=== PATIENT | female | born 1990 | race Caucasian/White ===

== ENCOUNTER 2019-01-08 22:32 | Emergency (ER) | payer OTHER ==
[~2019-01-08] VITALS: Ht 165.1 cm; Wt 59.1 kg
[2019-01-09] MEDS ORDERED: PYRI1TAB5 PO (00:23)
[2019-01-09] MEDS ORDERED: KEFL500C17 PO (00:23)
[2019-01-09] MEDS ORDERED: PHENAZOPYRIDINE 100 MG TAB PO ONE (00:30)
[2019-01-09] MEDS ORDERED: CEPHALEXIN 500 MG CAP PO ONE (00:30)
[2019-01-09 01:01] VITALS: BP 128/67
== END 2019-01-09 01:09 | disposition home or self-care (01) ==
LOC: M ED 22:32
DX: N30.01 Acute cystitis with hematuria (principal)

== ENCOUNTER 2021-04-20 18:36 | Emergency (ER) | payer OTHER ==
[~2021-04-20] VITALS: Ht 165.1 cm; Wt 67.2 kg
[~2021-04-20 18:36] MED LIST: KEFL500C17 PO; PYRI1TAB5 PO
--- OUTSIDE RECORDS SUMMARY | 2021-04-20 18:42 | CCD | Continuity of Care Document ---
Author Author Raegan SANCHEZ [facility] Organization Unknown Address [facility] [address] [place] [address] Phone [phone] Problems Active Problems Provider Date Family problems Arnold Sanchez LCSW [place]: 02/18/2021 Adjustment disorder with anxious mood Arnold Sanchez LCSW [place]: 02/18/2021 Social History Type Date Description Comments Sex Unknown Allergies, Adverse Reactions, Alerts Description No Information Available Medications Description No Information Available Immunizations Description No Information Available Vital Signs Description No Information Available Results Description No Information Available Procedures Date Code Description Status 02/09/2021 15019 Psychiatric Diagnostic Evaluatio n Completed Medical Devices Description No Information Available Encounters Description No Information Available Assessments Date Code Description Provider 02/18/2021 F43.22 Adjustment disorder with anxiety Arnold Sanchez LCSW 02/18/2021 Z63.0 Problems in relationship with sp ouse or partner Arnold Sanchez LCSW 02/09/2021 F43.20 Adjustment disorder, unspecified Arnold Sanchez LCSW 02/09/2021 Z63.0 Problems in relationship with sp ouse or partner Arnold Sanchez LCSW Plan of Treatment Future Appointment(s):* 03/07/2021 9:00 am - Arnold Sanchez LCSW at [facility] * 03/08/2021 1:00 pm - Petrona Allen RN at [facility] Functional Status Description No Information Available Mental Status Description No Information Available Referrals Description No Information Available
--- OUTSIDE RECORDS SUMMARY | 2021-04-20 18:42 | CCD | Continuity of Care Document ---
Author Author Raegan SANCHEZ [facility] Organization Unknown Address [facility] [address] [place] [address] Phone [phone] Problems Description No Information Available Social History Type Date Description Comments Sex Unknown Allergies, Adverse Reactions, Alerts Description No Information Available Medications Description No Information Available Immunizations Description No Information Available Vital Signs Description No Information Available Results Description No Information Available Procedures Date Code Description Status 02/09/2021 55053 Psychiatric Diagnostic Evaluatio n Completed Medical Devices Description No Information Available Encounters Description No Information Available Assessments Date Code Description Provider 02/09/2021 F43.20 Adjustment disorder, unspecified Arnold Sanchez LCSW 02/09/2021 Z63.0 Problems in relationship with sp ouse or partner Arnold Sanchez LCSW Plan of Treatment Future Appointment(s):* 03/04/2021 11:00 am - Arnold Sanchez LCSW at [facility] * 02/25/2021 1:00 pm - Arnold Sanchez LCSW at [facility] Functional Status Description No Information Available Mental Status Description No Information Available Referrals Description No Information Available
--- OUTSIDE RECORDS SUMMARY | 2021-04-20 18:42 | CCD | Continuity of Care Document ---
Author Author Raegan ORTA PA-C Organization Unknown Address [facility] [address] [place] [address] Phone [phone] Care Team Providers Care Award Clerk Name Role Phone [facility] AUTM [phone] Problems Active Problems Provider Date Family problems Arnold Wade LCSW [place]: 02/18/2021 Adjustment disorder with anxious mood Arnold Wade LCSW [place]: 02/18/2021 Social History Type Date Description Comments Sex Unknown Allergies, Adverse Reactions, Alerts Active Allergies Criticality Reaction | Severity Comments Date NKDA Unable to assess criticality 03/08/2021 Seasonal Unable to assess criticality 03/08/2021 NKFA Unable to assess criticality 03/08/2021 Medications Description No Active Medications Immunizations Description No Information Available Vital Signs Date Vital Result Comment 03/08/2021 1:02pm BP Systolic Sitting 111 mmHg BP Diastolic Sitting 69 mmHg Heart Rate 96 /min Body Temperature 98.4 F Oral Respiratory Rate 16 /min O2 % BldC Oximetry 98 % Weight 141.50 lb Weight 64.184 kg Height 65.5 inches 5'5.50" BMI (Body Mass Index) 23.2 kg/m2 BSA (Body Surface Area) 1.72 m2 Results Description No Information Available Procedures Date Code Description Status 03/18/2021 79041 Psychiatric Diag Eval W/Medical Service Completed 03/08/2021 17053 Preventive Counseling Indiv 30 M in Completed 02/09/2021 60805 Psychiatric Diagnostic Evaluatio n Completed Medical Devices Description No Information Available Encounters Description No Information Available Assessments Date Code Description Provider 03/18/2021 F43.22 Adjustment disorder with anxiety Slava Orta PA-C 03/18/2021 Z63.0 Problems in relationship with sp ouse or partner Slava Orta PA-C 03/08/2021 F43.22 Adjustment disorder with anxiety Petrona Allen RN 03/08/2021 Z63.0 Problems in relationship with sp ouse or partner Petrona Allen RN 03/07/2021 F43.22 Adjustment disorder with anxiety Arnlod Sheri, [facility] 03/07/2021 Z63.0 Problems in relationship with sp ouse or partner Arnold Sheri, [facility] 02/25/2021 F43.22 Adjustment disorder with anxiety Arnold [place], [facility] 02/25/2021 Z63.0 Problems in relationship with sp ouse or partner Arnold [place], [facility] 02/18/2021 F43.22 Adjustment disorder with anxiety Arnold Sheri, [facility] 02/18/2021 Z63.0 Problems in relationship with sp ouse or partner Arnold [place], [facility] 02/09/2021 F43.20 Adjustment disorder, unspecified Arnold Sheri, [facility] 02/09/2021 Z63.0 Problems in relationship with sp ouse or partner Arnold Sheri, [employer]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
--- OUTSIDE RECORDS SUMMARY | 2021-04-20 18:42 | CCD | Continuity of Care Document ---
Author Author Raegan ORTA PA-C Organization Unknown Address [facility] [address] [place] [address] Phone [phone] Care Team Providers Care Meat Smoker Name Role Phone [facility] AUTM [phone] Problems Active Problems Provider Date Family problems [...] Available Procedures Date Code Description Status 03/18/2021 22848 Psychiatric Diag Eval W/Medical Service Completed 03/08/2021 35152 Preventive Counseling Indiv 30 M in Completed 02/09/2021 91157 Psychiatric Diagnostic Evaluatio n Completed Medical Devices [...] RN 03/07/2021 F43.22 Adjustment disorder with anxiety Arnold Sheri, [facility] 03/07/2021 Z63.0 Problems in relationship with sp ouse or partner Arnold Sheri, [facility] 02/25/2021 F43.22 Adjustment disorder with anxiety Arnold [place], [facility] 02/25/2021 Z63.0 Problems in relationship with sp ouse or partner Arnold [place], [facility] 02/18/2021 F43.22 Adjustment disorder with anxiety Arnold Sheri, [facility] 02/18/2021 Z63.0 Problems in relationship with sp ouse or partner Arnold [place], [facility] 02/09/2021 F43.20 Adjustment disorder, unspecified Arnold Sheri, [facility] 02/09/2021 Z63.0 Problems in relationship with sp ouse or partner 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 Functional Status Description No Information Available Mental Status Description No Information Available Referrals Description No Information Available
--- OUTSIDE RECORDS SUMMARY | 2021-04-20 18:42 | CCD | Continuity of Care Document ---
Author Author Raegan SANCHEZ [facility] Organization Unknown Address [facility] [address] [place] [address] Phone [phone] Problems Active Problems Provider Date Family problems [...] Available Procedures Date Code Description Status 02/09/2021 71490 Psychiatric Diagnostic Evaluatio n Completed Medical Devices Description No Information Available Encounters Description No Information Available Assessments Date Code Description Provider 02/25/2021 F43.22 Adjustment disorder with anxiety Arnold Sheri, [facility] 02/25/2021 Z63.0 Problems in relationship with sp ouse or partner Arnold Sheri, [facility] 02/18/2021 F43.22 Adjustment disorder with anxiety Arnold Sehri, [facility] 02/18/2021 Z63.0 Problems in relationship with sp ouse or partner Arnold Bent, [facility] 02/09/2021 F43.20 Adjustment disorder, unspecified Arnold Sheri, [facility] 02/09/2021 Z63.0 Problems in relationship with sp ouse or partner 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
--- OUTSIDE RECORDS SUMMARY | 2021-04-20 18:42 | CCD ---
Author Author [facility] Organization [facility] Address Unknown Phone Unavailable Care Team Providers Care Lathe Setup Operator Name Role Phone MCALLISTER, J ZARA PA Unavailable Unavailable MCALLISTER, J ZARA PA Unavailable Unavailable MCALLISTER, J ZARA PA Unavailable Unavailable MCALLISTER, J ZARA PA Unavailable Unavailable MCALLISTER, J ZARA PA Unavailable Unavailable MCALLISTER, J ZARA PA Unavailable Unavailable MCALLISTER, J ZARA PA Unavailable Unavailable MCALLISTER, J ZARA PA Unavailable Unavailable MCALLISTER, J ZARA PA Unavailable Unavailable MCALLISTER, J ZARA PA Unavailable Unavailable MCALLISTER, J ZARA PA Unavailable Unavailable MCALLISTER, J ZARA PA Unavailable Unavailable MCALLISTER, J ZARA PA Unavailable Unavailable MCALLISTER, J ZARA PA Unavailable Unavailable MCALLISTER, J ZARA PA Unavailable Unavailable MCALLISTER, J ZARA PA Unavailable Unavailable MCALLISTER, J ZARA PA Unavailable Unavailable MCALLISTER, J ZARA PA Unavailable Unavailable MCALLISTER, J ZARA PA Unavailable Unavailable MCALLISTER, J ZARA PA Unavailable Unavailable MCALLISTER, J ZARA PA Unavailable Unavailable MCALLISTER, J ZARA PA Unavailable Unavailable MCALLISTER, J ZARA PA Unavailable Unavailable MCALLISTER, J ZARA PA Unavailable Unavailable MCALLISTER, J ZARA PA Unavailable Unavailable MCALLISTER, J ZARA PA Unavailable Unavailable MCALLISTER, J ZARA PA Unavailable Unavailable Marquez Gavin MD Unavailable Unavailable Marquez Gavin MD Unavailable Unavailable Marquez Gavin MD Unavailable Unavailable Marquez Gavin MD Unavailable Unavailable Marquez Gavin MD Unavailable Unavailable Marquez Gavin MD Unavailable Unavailable Marquez Gavin MD Unavailable Unavailable Marquez Gavin MD Unavailable Unavailable Marquez Gavin MD Unavailable Unavailable Aronowitz, Marquez Esposito MD Unavailable Unavailable Aronowitz, Marquez Esposito MD Unavailable Unavailable Aronowitz, Marquez Esposito MD Unavailable Unavailable Aronowitz, Marquez Esposito MD Unavailable Unavailable Aronowitz, Marquez Esposito MD Unavailable Unavailable Aronowitz, Marquez Esposito MD Unavailable Unavailable Aronowitz, Marquez Esposito MD Unavailable Unavailable Aronowitz, Marquez Esposito MD Unavailable Unavailable Aronowitz, Marquez Esposito MD Unavailable Unavailable Aronowitz, Marquez Esposito MD Unavailable Unavailable Aronowitz, Marquez Esposito MD Unavailable Unavailable Aronowitz, Marquez Esposito MD Unavailable Unavailable Aronowitz, Marquez Esposito MD Unavailable Unavailable Aronowitz, Marquez Esposito MD Unavailable Unavailable Aronowitz, Marquez Esposito MD Unavailable Unavailable Aronowitz, Marquez Esposito MD Unavailable Unavailable Aronowitz, Marquez Esposito MD Unavailable Unavailable DANIEL, JESSICA HEALTH NAVIGATOR Unavailable Unavailable DANIEL, JESSICA HEALTH NAVIGATOR Unavailable Unavailable HICMERI GONZALES Unavailable Unavailable Re-disclosure Warning The records that you are about to access may contain information from federally-assisted alcohol or drug abuse programs. If such information is present, then the following federally mandated warning applies: This information has been disclosed to you from records protected by federal confidentiality rules (42 CFR part 2). The federal rules prohibit you from making any further disclosure of this information unless further disclosure is expressly permitted by the written consent of the person to whom it pertains or as otherwise permitted by 42 CFR part 2. A general authorization for the release of medical or other information is NOT sufficient for this purpose. The Federal rules restrict any use of the information to criminally investigate or prosecute any alcohol or drug abuse patient.The records that you are about to access may contain highly sensitive health information, the redisclosure of which is protected by Article 27-F of the [facility] Public Health law. If you continue you may have access to information: Regarding HIV / AIDS; Provided by facilities licensed or operated by the [facility] Office of Mental Health; or Provided by the [facility] Office for People With Developmental Disabilities. If such information is present, then the following [facility] mandated warning applies: This information has been disclosed to you from confidential records which are protected by state law. State law prohibits you from making any further disclosure of this information without the specific written consent of the person to whom it pertains, or as otherwise permitted by law. Any unauthorized further disclosure in violation of state law may result in a fine or care home sentence or both. A general authorization for the release of medical or other information is NOT sufficient authorization for further disc losure. Encounters Encounter Providers Location Date Indications Data Source(s ) Outpatient Attender: ZARA VALLES 03/18 11:08:00 AM EDT - 03/18/2021 11:08:00 AM [facility] Outpatient Attender: ZARA Castanoerrer: Vaibhav king MD 03/08/2021 12:53:00 PM T 03/08/2021 12:53:00 PM [facility] Outpatient Attender: JESSICA SANCHEZ [facility] 09:10:00 AM T 03/07/2021 09:10:00 AM [facility] Outpatient Attender: [facility] Vaibhav guerrier MD 02/25/2021 12:52:00 PM T 02/25/2021 12:52:00 PM [facility] Outpatient Attender: JESSICA SANCHEZ LMReferrer: Vaibhav guerrier MD 02/18/2021 10:52:00 AM T 02/18/2021 10:52:00 AM [facility] Outpatient Attender: JESSICA SANCHEZ LMSW 11:18:00 AM [facility] 02/09/2021 11:18:00 AM [facility] Outpatient Attender: MERI ONEILL 05/19/2020 11:00:00 AM [facility] Medications No Information Insurance Providers Payer name Policy type / Coverage type Policy ID Covered constitution party ID Covered constitution party's relationship to stoll Policy Stoll Plan Information [facility] [id number] [facility] [id number] [facility] [id number] 01 [id number] [facility] [id number] SPO [id number] Problems, Conditions, and Diagnoses Code Display Name Description Problem Type Effective Dates Data Source(s) Z630 Problems in relationship with spouse or partner Problems in relationship with spouse or partner Diagnosis 03/18/2021 11:08:00 AM EDT [facility] F4322 Adjustment disorder with anxiety Adjustment diso rder with anxiety Diagnosis 03/18/2021 11:08:00 AM EDT [facility] F4320 Adjustment disorder, unspecified Adjustment diso rder, unspecified Diagnosis 02/09/2021 11:18:00 AM EDT [facility] F43.10 Post-traumatic stress disorder, unspecif ied POST-TRAUMATIC STRESS DISORDER, UNSPECIFIED Diagnosis 05/19/2020 11:00:00 AM [facility] F41.9 Anxiety disorder, unspecified ANXIETY DISORDER, UNSPEC IFIED Diagnosis 05/19/2020 11:00:00 AM [facility] F43.22 Adjustment disorder with anxious mood Ad justment disorder with anxious mood Problem 02/18/2021 12:00:00 AM EDT [facility] ([facility]) Z63.0 Family problems Family problems Problem 02/18/2021 12:0 0:00 AM EDT [facility] ([facility]) Surgeries/Procedures Procedure Description Date Indications Data Source(s) Psychiatric Diag Eval W/Medical Service 03/18/2021 12: 00:00 AM EDT [facility] ([facility]) PREVENT MED FLOWER MAKER&/RISK FACTOR REDJ SPX 30 MIN 03/08 12:00:00 AM EDT [facility] ([facility]) Psychiatric Diagnostic Evaluation 02/09/2021 12:00:00 AM EDT [facility] ([facility]) Results ID Date Data Source [id number] 03/08/2021 01:30:00 PM EDT [facility] ([facility]) Name Value Range Interpretation Code Description Data Karyn rce(s) Supporting Document(s) Laboratory test finding (navigational concept) Laboratory test result [facility] ([facility]) {DIAGNOSIS: F43.22~{MEDICATIONS/DECLARE D: NO MEDICATIONS PRESCRIBED~{PRESCRIPTION INFO:~{PRESCR PDF Laboratory test result [facility] ([facility]) {DIAGNOSIS: F43.22~{MEDICATIONS/DECLARE D: NO MEDICATIONS PRESCRIBED~{PRESCRIPTION INFO:~{PRESCR ID Date Data Source [id number] 03/19/2021 06:21:00 AM EDT [facility] Name Value Range Interpretation Code Description Data Karyn rce(s) Supporting Document(s) Drugs identified in Urine FINAL [facility] TOXASSURE SELECT 13 (MW) Test Result Flag Units NO DRUGS DETECTED. Svetlana t Result Flag Units Ref Range Creatinine 32 mg/dL > =20 Declared Medications: The flagging and interpretation on this report are based on the following declared medications. Unexpected results may arise from inaccuracies in the declared medications. No medication use reported. For clinical consultation, please call . Report . [facility] Procedure Social History No Information Vital Signs ID Date Data Source UNK Name Value Range Interpretation Code Description Data Source(s) Respiratory rate 16 /min 16 /min [facility] ( [facility]) Oxygen saturation in Arterial blood by Pulse oximetry 98 % 98 % [facility] ([facility]) Body weight 64.184 kg 64.184 kg [facility] ([facility]) Body temperature 98.4 [degF] 98.4 [degF] [facility] ([facility]) Oral Body weight 141.50 [lb_av] 141.50 [lb_av] [facility] ([facility]) Body height 65.5 [in_i] 65.5 [in_i] [facility] ([facility]) 5'5.50" Body mass index (BMI) [Ratio] 23.2 kg/m2 23.2 k g/m2 [facility] Body surface area Derived from formula 1.72 m2 1.72 m2 [facility] Systolic blood pressure--sitting 111 mm[Hg] 111 mm[Hg] [facility] ([facility]) Diastolic blood pressure--sitting 69 mm[Hg] 69 mm[Hg] [facility] ([facility]) Heart rate 96 /min 96 /min [facility] ([facility])
--- OUTSIDE RECORDS SUMMARY | 2021-04-20 18:42 | CCD | Continuity of Care Document ---
Author Author Raegan ORTA PA-C Organization Unknown Address [facility] [address] [place] [address] Phone [phone] Care Team Providers Care Director Of Special Education Name Role Phone [facility] AUTM [phone] Problems Active Problems Provider Date Family problems [...] Available Procedures Date Code Description Status 03/18/2021 87515 Psychiatric Diag Eval W/Medical Service Completed 03/08/2021 50097 Preventive Counseling Indiv 30 M in Completed 02/09/2021 90223 Psychiatric Diagnostic Evaluatio n Completed Medical Devices [...] F43.22 Adjustment disorder with anxiety Arnold Sheri, [facility] 03/07/2021 Z63.0 Problems in relationship with sp ouse or partner Arnold Sheri, [facility] 02/25/2021 F43.22 Adjustment disorder with anxiety Arnold Otero, [facility] 02/25/2021 Z63.0 Problems in relationship with sp ouse or partner Arnold Otero, [facility] 02/18/2021 F43.22 Adjustment disorder with anxiety Arnold Sheri, [facility] 02/18/2021 Z63.0 Problems in relationship with sp ouse or partner Arnold Otero, [facility] 02/09/2021 F43.20 Adjustment disorder, unspecified Arnold Sheri, [facility] 02/09/2021 Z63.0 Problems in relationship with sp ouse or partner 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
--- OUTSIDE RECORDS SUMMARY | 2021-04-20 18:42 | CCD ---
Continuity of Care Document (CCD) Created on: 03/08/2021 Raegan Crystal External Reference #: [id number] : [id number] Sex: Female Author Author Raegan RICHARDSON RN Organization Unknown Address [address] [place] [address] Phone [phone] Care Team Providers Care Assistant Media Planner Name Role Phone [facility] AUTM [phone] Problems Active Problems Provider Date Family problems Arnold Wade LCSW [place]: 02/18/2021 Adjustment disorder with anxious mood EDMOND WigginsW O nset: 02/18/2021 Social History Type Date [...] Available Procedures Date Code Description Status 02/09/2021 14271 Psychiatric Diagnostic Evaluatio n Completed Medical Devices Description No Information Available Encounters Description No Information Available Assessments Date Code Description Provider 03/07/2021 F43.22 Adjustment disorder with anxiety Arnold Wade, [facility] 03/07/2021 Z63.0 Problems in relationship with sp ouse or partner Arnold Wade [employer] 02/25/2021 F43.22 Adjustment disorder with anxiety Arnold Sheri, [facility] 02/25/2021 Z63.0 Problems in relationship with sp ouse or partner Arnold Sheri, [facility] 02/18/2021 F43.22 Adjustment disorder with anxiety Arnold Harnett, [facility] 02/18/2021 Z63.0 Problems in relationship with sp ouse or partner Arnold Sheri, [facility] 02/09/2021 F43.20 Adjustment disorder, unspecified Arnold Harnett, [facility] 02/09/2021 Z63.0 Problems in relationship with sp ouse or partner Arnold Harnett, [facility] Plan of Treatment Future Appointment(s):* 03/18/2021 11:00 am - Slava Orta PA-C at [facility] Functional Status Description No Information Available Mental Status Description No Information Available Referrals Description No Information Available
--- OUTSIDE RECORDS SUMMARY | 2021-04-20 18:42 | CCD | Continuity of Care Document ---
Author Author Raegan ORTA PAHoma Organization Unknown Address [facility] [address] [place] [address] Phone [phone] Care Team Providers Care Aircraft Structural Design Engineer Name Role Phone [facility] AUTM [phone] Problems Active Problems Provider Date Family problems [...] BSA (Body Surface Area) 1.72 m2 Results Test Acquired Date Facility Test Result H/L Range Note [facility] Toxassure Select 13 03/08/2021 Tony hawley Summary Report (Summary) FINAL 1, 2 PDF . 1 {DIAGNOSIS: F43.22~{MEDICAT IONS/DECLARED: NO MEDICATIONS PRESCRIBED~{PRESCRIPTION INFO:~{PRESCR 2 TOXASSURE SELECT 13 (MW) Test Result Flag Units NO DRUGS DETECTED. Test Result Flag Units Ref Range Creatinine 32 mg/dL >=20 Declared Medications: The flagging and interpretation on this report are based on the following declared medications. Unexpected results may arise from inaccuracies in the declared medications. No medication use reported. For clinical consultation, please call . Procedures Date Code Description Status 03/18/2021 87980 Psychiatric Diag Eval W/Medical Service Completed 03/08/2021 46062 Preventive Counseling Indiv 30 M in Completed 02/09/2021 59331 Psychiatric Diagnostic Evaluatio n Completed Medical Devices Description No Information Available Encounters Description No Information Available Assessments Date Code Description Provider 03/18/2021 F43.22 Adjustment disorder with anxiety Slava Orta PA-C 03/18/2021 Z63.0 Problems in relationship with sp ouse or partner Slava Orta PA-C 03/08/2021 F43.22 Adjustment disorder with anxiety Petrona Allen, RN 03/08/2021 Z63.0 Problems in relationship with sp ouse or partner Petorna Allen RN 03/07/2021 F43.22 Adjustment disorder with anxiety Arnold Sheri, [facility] 03/07/2021 Z63.0 Problems in relationship with sp ouse or partner Arnold Sheri, [facility] 02/25/2021 F43.22 Adjustment disorder with anxiety Arnold Duplin, [facility] 02/25/2021 Z63.0 Problems in relationship with sp ouse or partner Arnold Duplin, [facility] 02/18/2021 F43.22 Adjustment disorder with anxiety Arnold Duplin, [facility] 02/18/2021 Z63.0 Problems in relationship with sp ouse or partner Arnold Duplin, [facility] 02/09/2021 F43.20 Adjustment disorder, unspecified Arnold Duplin, [facility] 02/09/2021 Z63.0 Problems in relationship with sp ouse or partner 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
[2021-04-20 22:20] LABS: BASO # 0.1 10^3/uL (0.0-0.2); BASO % 0.7 % (0.0-1.0); EOS # 0.2 10^3/uL (0.0-0.5); EOS % 2.2 % (0.0-3.0); HEMATOCRIT 39.8 % (36.0-47.0); LYMPH # 2.5 10^3/uL (1.5-5.0); LYMPH % 35.1 % (24.0-44.0); MEAN CORPUSCULAR HEMOGLOBIN 28.9 pg (27.0-33.0); MEAN CORPUSCULAR HGB CONC 32.7 g/dl (32.0-36.5); MEAN CORPUSCULAR VOLUME 88.4 fl (80.0-96.0); MONO # 0.7 10^3/uL (0.0-0.8); MONO % 9.5 % (2.0-8.0); NEUTROPHILS # 3.8 10^3/uL (1.5-8.5); NEUTROPHILS % 52.4 % (36.0-66.0); PLATELET COUNT, AUTOMATED 232 10^3/uL (150-450); WHITE BLOOD COUNT 7.2 10^3/uL (4.0-10.0)
[2021-04-20 22:52] LABS: ALBUMIN 3.8 GM/DL (3.2-5.2); ALT/SGPT 22 U/L (12-78); BILIRUBIN,DIRECT < 0.1 MG/DL (0.0-0.2); BILIRUBIN,TOTAL 0.3 MG/DL (0.2-1.0); BLOOD UREA NITROGEN 14 MG/DL (7-18); CALCIUM LEVEL 9.2 MG/DL (8.5-10.1); CARBON DIOXIDE LEVEL 28 MEQ/L (21-32); CHLORIDE LEVEL 103 MEQ/L (98-107); CREATININE FOR GFR 0.83 MG/DL (0.55-1.30); GLOMERULAR FILTRATION RATE > 60.0 (>60); GLUCOSE, FASTING 94 MG/DL (70-100); LIPASE 166 U/L (73-393); POTASSIUM SERUM 3.9 MEQ/L (3.5-5.1); SODIUM LEVEL 139 MEQ/L (136-145); TOTAL PROTEIN 7.2 GM/DL (6.4-8.2)
[2021-04-20 23:00] LABS: HCG, SERUM QUALITATIVE NEGATIVE (NEGATIVE)
[2021-04-21 00:45] VITALS: BP 138/72
--- OUTSIDE RECORDS SUMMARY | 2021-04-21 01:57 | CCD ---
Author Author [facility] Organization [facility] Address Unknown Phone Unavailable Care Team Providers Care Supervisor [employer]estock [employer] Name Role Phone MCALLISTER, J ZARA PA [...] Unavailable Marquez Gavin MD Unavailable Unavailable Marquez Gaivn MD Unavailable Unavailable Marquez Gavin MD Unavailable [...] Marquez Esposito MD Unavailable Unavailable DANIEL, JESSICA CONTRACT MODELER Unavailable Unavailable DANIEL, JESSICA CONTRACT MODELER Unavailable Unavailable HICMERI GONZALES Unavailable Unavailable Re-disclosure [...] is protected by Article 27-F of the [facility] Public Health law. If you continue you may have access to information: Regarding HIV / AIDS; Provided by facilities licensed or operated by the [facility] Office of Mental Health; or Provided by the [facility] Office for People With Developmental Disabilities. If such information is present, then the following [facility] mandated warning applies: This information has been [...] law may result in a fine or alf sentence or both. A general authorization for the release of medical or other information is NOT sufficient authorization for further disc losure. Encounters Encounter Providers Location Date Indications Data Source(s ) Outpatient Attender: ZARA VALLES 03/18 11:08:00 AM EDT - 03/18/2021 11:08:00 AM [facility] Outpatient Attender: ZARA MUNGUIAeferrer: Vaibhav king MD 03/08/2021 12:53:00 PM T - 03/08/2021 12:53:00 PM [facility] Outpatient Attender: JESSICA SANCHEZ [facility] 09:10:00 AM T 03/07/2021 09:10:00 AM [facility] Outpatient Attender: JESSICA SANCHEZ LMReferrer: Vaibhav guerrier MD 02/25/2021 12:52:00 PM EDT - 02/25/2021 12:52:00 PM [facility] Outpatient Attender: JESSICA SANCHEZ LMSWReferrer: Vaibhav guerrier MD 02/18/2021 10:52:00 AM EDT - 02/18/2021 10:52:00 AM [facility] Outpatient Attender: JESSICA SANCHEZ LMSW 11:18:00 AM EDT - 02/09/2021 11:18:00 AM [facility] Outpatient Attender: MERI ONEILL 05/19/2020 11:00:00 AM [facility] Medications No Information Insurance Providers Payer name Policy type / Coverage type Policy ID Covered libertarian ID Covered libertarian's relationship to stoll Policy Stoll Plan Information [facility] [id number] [facility] [id number] [facility] [id number] [facility] [id number] [facility] [id number] Problems, Conditions, and Diagnoses Code Display Name Description Problem Type Effective Dates Data Source(s) Z630 Problems in relationship with spouse or partner Problems in relationship with spouse or partner Diagnosis 03/18/2021 11:08:00 AM EDT [facility] F4322 Adjustment disorder with anxiety Adjustment diso rder with anxiety Diagnosis 03/18/2021 11:08:00 AM EDT [facility] F4320 Adjustment disorder, unspecified Adjustment diso rder, unspecified Diagnosis 02/09/2021 11:18:00 AM EDT [facility] F43.10 Post-traumatic stress disorder, unspecif ied POST-TRAUMATIC STRESS DISORDER, UNSPECIFIED Diagnosis 05/19/2020 11:00:00 AM [facility] F41.9 Anxiety disorder, unspecified ANXIETY DISORDER, UNSPEC IFIED Diagnosis 05/19/2020 11:00:00 AM [facility] F43.22 Adjustment disorder with anxious mood Ad justment disorder with anxious mood Problem 02/18/2021 12:00:00 AM EDT [facility] ([facility]) Z63.0 Family problems Family problems Problem 02/18/2021 12:0 0:00 AM EDT [facility] ([facility]) Surgeries/Procedures Procedure Description Date Indications Data Source(s) Psychiatric Diag Eval W/Medical Service 03/18/2021 12: 00:00 AM EDT [facility] ([facility]) PREVENT MED RESIDENTIAL GLAZIER&/RISK FACTOR REDJ SPX 30 MIN 03/08 12:00:00 AM EDT [facility] ([facility]) Psychiatric Diagnostic Evaluation 02/09/2021 12:00:00 AM EDT [facility] ([facility]) Results ID Date Data Source [id number] 03/08/2021 01:30:00 PM EDT [facility] ([facility]) Name Value Range Interpretation Code Description Data Karyn rce(s) Supporting Document(s) Laboratory test finding (navigational concept) Laboratory test result [facility] ([facility]) {DIAGNOSIS: F43.22~{MEDICATIONS/DECLARE D: NO MEDICATIONS PRESCRIBED~{PRESCRIPTION INFO:~{PRESCR PDF Laboratory test result [facility] ([facility]) {DIAGNOSIS: F43.22~{MEDICATIONS/DECLARE D: NO MEDICATIONS PRESCRIBED~{PRESCRIPTION INFO:~{PRESCR ID Date Data Source [id number] 03/19/2021 06:21:00 AM EDT [facility] Name Value Range Interpretation Code Description Data Karyn rce(s) Supporting Document(s) Drugs identified in Urine FINAL [facility] TOXASSURE SELECT 13 (MW) Test Result Flag Units NO DRUGS DETECTED. Svetlana t Result Flag Units Ref Range Creatinine 32 mg/dL > =20 Declared Medications: The flagging and interpretation on this report are based on the following declared medications. Unexpected results may arise from inaccuracies in the declared medications. No medication use reported. For clinical consultation, please call . Report . [facility] Procedure Social History No Information Vital Signs ID Date Data Source UNK Name Value Range Interpretation Code Description Data Source(s) Respiratory rate 16 /min 16 /min [facility] ( [facility]) Oxygen saturation in Arterial blood by Pulse oximetry 98 % 98 % [facility] ([facility]) Body weight 64.184 kg 64.184 kg [facility] ([facility]) Body temperature 98.4 [degF] 98.4 [degF] [facility] ([facility]) Oral Body weight 141.50 [lb_av] 141.50 [lb_av] [facility] ([facility]) Body height 65.5 [in_i] 65.5 [in_i] [facility] 5'5.50" Body mass index (BMI) [Ratio] 23.2 kg/m2 23.2 k g/m2 [facility] Body surface area Derived from formula 1.72 m2 1.72 m2 [facility] ([facility]) Systolic blood pressure--sitting 111 mm[Hg] 111 mm[Hg] [facility] ([facility]) Diastolic blood pressure--sitting 69 mm[Hg] 69 mm[Hg] [facility] ([facility]) Heart rate 96 /min 96 /min [facility] ([facility])
== END 2021-04-21 03:01 | disposition left against medical advice (07) ==
LOC: M ED 18:36
DX: Z53.21 Procedure and treatment not carried out due to patient leaving prior to being seen by health care provider (principal)

== ENCOUNTER → 2022-05-24 | Outpatient (CLI) | payer OTHER | LOC: M WHC 08:10 | PROVIDERS: ATTEND Family Medicine | DX: N63.13 Unspecified lump in the right breast, lower outer quadrant (principal) ==

== ENCOUNTER → 2022-09-13 | Outpatient (CLI) | payer OTHER | LOC: M WHC 13:29 | PROVIDERS: ATTEND Family Medicine | DX: D24.1 Benign neoplasm of right breast (principal); Z18.89 Other specified retained foreign body fragments | CPT/HCPCS: 77065; G0279 ==